=== PATIENT | female | born 1940 | race Caucasian/White ===

== ENCOUNTER 2017-12-26 08:00 | Inpatient (IN) | payer OTHER ==
[~2017-12-26] VITALS: Ht 160 cm; Wt 71.7 kg
[2017-12-26] MEDS ORDERED: ATENOLOL50 MG PO (10:34)
[2017-12-26] MEDS ORDERED: TRAMADOL HCL50 MG PO (10:35)
[2017-12-26] MEDS ORDERED: ZOCOR20 MG PO (10:35)
[2017-12-26] MEDS ORDERED: SYNTHROID125 MCG PO (10:35)
[2018-01-02] MEDS ORDERED: ELIQUIS2.5 MG PO (06:42)
[2018-01-02] MEDS ORDERED: INTEGRA PLUS C1 EACH PO (06:42)
[2018-01-02] MEDS ORDERED: OXYC1TAB9 PO (06:43)
== END 2018-01-02 14:49 | DRG 470 ==
LOC: SURG 12-31 07:14 → O/R 12-31 07:14 → SURH 12-31 08:00 → SURG 12-31 19:44
PROVIDERS: Orthopaedic Surgery Sports Medicine
PROC: 0SRD0J9 Replacement of Left Knee Joint with Synthetic Substitute, Cemented, Open Approach (ICD-10-PCS; principal; 2017-12-31 10:45)
DX: M17.12 Unilateral primary osteoarthritis, left knee (principal); E03.8 Other specified hypothyroidism